=== PATIENT | male | born 1985 | race Caucasian/White ===

== ENCOUNTER 2023-04-05 11:46 | Outpatient (REF) | payer OTHER, SELFPAY ==
[2023-04-05 12:01] VITALS: BP 137/77; PULSE 84; RESP 16; TEMP 36.8; O2SAT 99
[2023-04-05 13:39] VITALS: BP 137/85; PULSE 82; O2SAT 100
== END 2023-04-05 11:47 | disposition home or self-care (01) ==
LOC: HO.MS 11:46
PROVIDERS: Visit Provider Ophthalmology
PROC: (CPT 67700; principal; 2023-04-05 16:10)
DX: H00.12 Chalazion right lower eyelid (principal)
CPT/HCPCS: 67700

== ENCOUNTER 2023-06-25 17:27 | Emergency (ER) | payer OTHER, SELFPAY ==
--- NOTE | 2023-06-25 | ECG_ITS ---
Test Reason : cp Blood Pressure : / mmHG Vent. Rate : 085 BPM Atrial Rate : 085 BPM P-R Int : 140 ms QRS Dur : 096 ms QT Int : 372 ms P-R-T Axes : 056 011 025 degrees QTc Int : 442 ms Normal sinus rhythm Incomplete right bundle branch block Borderline ECG No previous ECGs available Referred By: Generic ED Physician Electronically Signed By:LIU KERN MD
--- NOTE | ~2023-06-25 | XR_ITS ---
EXAMINATION: XR CHEST CLINICAL INFORMATION: Chest pain COMPARISON: None available. TECHNIQUE: 2 views of the chest were obtained. FINDINGS: No significant abnormality is noted involving the heart, lungs, mediastinum, bony thorax or soft tissues. XR/XR chest 2V IMPRESSION: Unremarkable chest examination.
[2023-06-25 17:42] VITALS: BP 138/85; PULSE 87; RESP 20; TEMP 37.1; O2SAT 100; BMI 25.4
--- NOTE | 2023-06-25 17:44 | ED_ITS ---
HPI - General Adult General Chief complaint: Upper Respiratory Symptoms Stated complaint: chest pain,cough sent from Time Seen by Provider: 06/25/23 20:00 Source: patient Mode of arrival: ambulatory Limitations: no limitations History of Present Illness HPI narrative: Patient comes to the emergency room complaining of cough, nasal congestion. Patient states that earlier today he went to urgent Care, he he told the provider that he was experiencing chest burning sensation from coughing so much, patient was asked to come to the emergency room for further evaluation. Patient denies any chest pain or shortness of breath. Patient denies fever chills Related Data Allergies Allergy/AdvReac Type Severity Reaction Status Date / Time No Known Allergies Allergy Unverified 02/08/20 17:39 [No Known Allergies*] Review of Systems 2 Review of Systems: Constitutional : No Weight loss, No Fever, No Chills, No Night Sweats, No Fatigue, No Malaise ENT/Mouth : No Hearing loss, No Ear Pain, complaining of Nasal Congestion, No Sinus Pain, No Hoarseness, No sore throat, No Rhinorrhea, No Swallowing Difficulty Eyes: No Eye Pain, No Swelling, No Redness, No Foreign Body, No Discharge, No Vision Changes Cardiovascular : No Chest Pain, No SOB, No Dyspnea on Exertion, No Orthopnea, No Edema, No Palpitations Respiratory : Complaining of Cough, No Sputum, No Wheezing, No Smoke Exposure, No Dyspnea Gastrointestinal : No Nausea, No Vomiting, No Diarrhea, No Constipation, No abdominal Pain, No Hematochezia, No Melena Genitourinary : no irregular bleeding, No Dysuria, No Urinary Frequency, No Hematuria, No Urinary Incontinence, No Urgency, No Flank Pain, No Urinary Flow Changes, No Hesitancy Musculoskeletal : No joint pain, No Myalgias, No Joint Swelling Skin : No Skin Lesions, No rash Neuro : No Weakness, No Numbness, No Paresthesias, No Loss of Consciousness, No Dizziness, No Headache Psych : No Anxiety/Panic, No Depression, No SI/HI/AH/VH, No Social Issues, Heme/Lymph: No Bruising, No Bleeding,No Lymphadenopathy Endocrine : No Polyuria, No Polydipsia, No Temperature Intolerance PMFSH Social History Social History Advance Directives: No Advance Directives Information Provided: No Physical Exam ED Vital Signs: Vital Signs - 24 hr 06/25/23 17:42 Temperature 98.8 F Pulse Rate 87 Respiratory Rate 20 Blood Pressure 138/85 Pulse Oximetry 100 Oxygen Delivery Method Room Air BMI result Body Mass Index 25.4 Const Other: Appearance: Alert. Oriented X3. No acute distress. Eyes: Pupils equal, round and reactive to light. ENT: Pharynx normal. Neck: Normal inspection. Neck supple. No lymph nodes noted. No crepitus CVS: Normal heart rate and rhythm. Pulses normal. Normal S1 and S2 Respiratory: No respiratory distress. Breath sounds normal. No Wheezing. No rales Abdomen: Soft and nontender. No rigidity. No distention. Skin: Skin warm and dry. Normal skin color. Normal skin turgor. Extremities: No lower extremity edema. No Lacerations. No Rash Neuro: Oriented X 3. No motor deficit. No sensory deficit. Moving all extremities. No slurred speech. CN 2 through 12 grossly intact Psych: calm, cooperative, normal affect Course Course Course Narrative: RME performed by Vianey Martinez PA-C. Patient is a 37 year old assigned male at presenting to the emergency department with chest pain. Detailed physical exam and review of systems are deferred to the sternman. Labs and imaging ordered. Patient placed back in the waiting room pending room availability and results. Medical Decision Making Medical Decision Making [facility] Narrative: My interpretation of labs: Normal hematology chemistry LFTs troponin -my interpretation of chest x-ray: No infiltrates Differential Diagnosis Differential Diagnoses: The differential diagnosis associated with the presentation includes (ACS, pneumonia, musculoskeletal pain, pleurisy) Admission/Observation Consideration of admission/observation: Escalation of care including admission/observation considered (Given patient's transferred from urgent Care, patient's history, admission was considered) Consult Healthcare Provider Management of the patient was discussed with: Hospitalist Lab Data [facility] Lab Attestation statement: I reviewed the patient's lab results. 06/25/23 18:30 06/25/23 18:30 Labs: Lab Results 06/25/23 Range/Units 18:30 WBC 7.9 (4.8-10.8) X10*3/uL RBC 5.75 (4.60-5.80) X10*6/uL Hgb 15.9 (14.0-18.0) g/dl Hct 46.0 (42.0-52.0) % MCV 80.0 (80.0-98.0) fL MCH 27.7 (27.0-33.0) pg MCHC 34.6 (31.0-36.0) g/dl RDW 12.1 (11.0-16.0) % Plt Count 258 (160-400) X10*3/uL MPV 9.1 L (9.4-12.4) fL Immature Gran % (Auto) 0.3 (0.0-0.4) % Neut % (Auto) 56.5 (45-73) % Lymph % (Auto) 26.7 (20-40) % [place] % (Auto) 12.3 H (2-11) % Eos % (Auto) 3.8 (0-4) % Baso % (Auto) 0.4 (0-2) % Lymph # (Auto) 2.1 (1.2-4.9) X10*3/uL [place] # (Auto) 1.0 (0.1-1.2) X10*3/uL Eos # (Auto) 0.3 (0.0-0.4) X10*3/uL Baso # (Auto) 0.0 (0.0-0.2) X10*3/uL Abs Immat Gran (auto) 0.02 (0.00-0.03) X10*3/uL Absolute Neuts (auto) 4.5 (2.0-8.3) x10*3/uL Absolute Nucleated RBC 0.000 (0.0-0.012) X10*3/uL Nucleated RBC % (auto) 0.0 (0.0-0.2) /100WBC PT 11.8 (11.1-13.3) SEC INR 1.0 (0.9-1.1) APTT 33.7 (26.0-36.8) SEC Sodium 138 (135-145) mmol/L Potassium 4.1 (3.3-5.1) mmol/L Chloride 102 (96-108) mmol/L Carbon Dioxide 25 (22-29) mmol/L Anion Gap 15 (12-20) BUN 14 (9-16) mg/dL Creatinine 0.75 (0.5-1.4) mg/dL Estim Creat Clear Calc 127.9 Estimated GFR > 60 Random Glucose 90 (60-115) mg/dL Calcium 9.7 (8.4-10.2) mg/dL Magnesium 2.1 (1.6-2.6) mg/dL Total Bilirubin 0.4 (0.0-1.0) mg/dL AST 19 (5-37) U/L ALT 33 (0-40) U/L Alkaline Phosphatase 48 (39-117) U/L Troponin I High Sens < 2.7 (<3.5-35.0) ng/L Total Protein 8.0 (6.5-8.0) g/dL Albumin 4.8 (3.5-5.0) g/dL Independent Interpretation I performed an independent interpretation of an: Plain X-Ray Radiology Impression Discussion of test interpretation with radiology: I have reviewed the radiologist's reading. Radiologist Impression: FINDINGS: No significant abnormality is noted involving the heart, lungs, mediastinum, bony thorax or soft tissues. XR/XR chest 2V IMPRESSION: Unremarkable chest examination. Critical Care Time Critical Care Time Critical Care Time: Yes Total Critical Care Time: 30 Attestation: I have personally provided critical care time. Time includes review of lab data, radiology results, discussion with consultants, and monitoring for potential decompensation. Intervention performed as documented. Discharge Plan Discharge Clinical Impression: Upper respiratory infection Patient Disposition: Home, Self-Care Instructions: Upper Respiratory Infection (ED) Additional Instructions: Please follow-up with your primary care physician tomorrow. If you have any worsening or new symptoms, please return to the emergency room or call 911
[2023-06-25 18:35] LABS: MANUAL DIFF FLAG NO
[2023-06-25 18:42] LABS: Basophils Percent Auto 0.4 % (0-2); Eosinophils Absolute Auto 0.3 X10*3/uL (0.0-0.4); Eosinophils Percent Auto 3.8 % (0-4); Hemoglobin 15.9 g/dl (14.0-18.0); Imm Gran Abs Auto 0.02 X10*3/uL (0.00-0.03); Imm Gran Pct Auto 0.3 % (0.0-0.4); Lymphocytes Absolute Auto 2.1 X10*3/uL (1.2-4.9); Lymphocytes Percent Auto 26.7 % (20-40); Mean Corpuscular HGB Conc 34.6 g/dl (31.0-36.0); Mean Corpuscular Hemoglobin 27.7 pg (27.0-33.0); Mean Platelet Volume 9.1 fL (9.4-12.4); Monocytes Percent Auto 12.3 % (2-11); Neutrophils Absolute Auto 4.5 x10*3/uL (2.0-8.3); Neutrophils Percent Auto 56.5 % (45-73); Platelet Count 258 X10*3/uL (160-400); Red Blood Count 5.75 X10*6/uL (4.60-5.80); Red Cell Distribution Width 12.1 % (11.0-16.0); White Blood Count 7.9 X10*3/uL (4.8-10.8)
[2023-06-25 18:51] LABS: Prothrombin Time 11.8 SEC (11.1-13.3)
[2023-06-25 18:53] LABS: Partial Thromboplastin Time 33.7 SEC (26.0-36.8)
[2023-06-25 18:54] LABS: Alanine Aminotransferase 33 U/L (0-40); Albumin Level 4.8 g/dL (3.5-5.0); Alkaline Phosphatase 48 U/L (39-117); Anion Gap 15 (12-20); Aspartate Amino Transferase 19 U/L (5-37); Bilirubin Total 0.4 mg/dL (0.0-1.0); Blood Urea Nitrogen 14 mg/dL (9-16); Calcium 9.7 mg/dL (8.4-10.2); Carbon Dioxide 25 mmol/L (22-29); Chloride 102 mmol/L (96-108); Creatinine Clr Calc Pharmacy 127.9; Estimated Glomerular Filt Rate > 60; Glucose Random 90 mg/dL (60-115); Magnesium 2.1 mg/dL (1.6-2.6); Potassium 4.1 mmol/L (3.3-5.1); Sodium 138 mmol/L (135-145)
[2023-06-25 19:02] LABS: Troponin-I High Sensitivity < 2.7 ng/L (<3.5-35.0)
== END 2023-06-25 20:20 | disposition home or self-care (01) ==
PROVIDERS: Physician Assistant Medical; Emergency Provider Emergency Medicine; PCP Physician Assistant Medical
DX: J06.9 Acute upper respiratory infection, unspecified (principal); R07.89 Other chest pain; R05.9 Cough, unspecified; Z79.899 Other long term (current) drug therapy
CPT/HCPCS: 36415; 71046; 80053; 83735; 84484; 85025; 85610; 85730; 93005; 99283

== ENCOUNTER → 2023-06-25 17:33 | Outpatient (BNV) | payer OTHER, SELFPAY | PROVIDERS: Emergency Provider Emergency Medicine; PCP Physician Assistant Medical; Visit Provider Internal Medicine Cardiovascular Disease | DX: R07.9 Chest pain, unspecified (principal) | CPT/HCPCS: 93010 ==

== ENCOUNTER 2025-02-14 07:38 | Outpatient (REF) | payer OTHER, SELFPAY ==
--- OUTSIDE RECORDS SUMMARY | 2025-02-12 09:30 | XMS_ITS | Encounter Summary ---
Author Organization [facility] Address [address] [place] [address] Care Team Providers Care Automatic Chief Name Role Phone Marj Akhtar MD Primary Care Prov ider Reason for Referral * Consultation (Routine) - Pending Review Specialty Diagnoses / Procedures Referred By Beto tyler Referred To Contact Neurology Diagnoses Dizziness, nonspecific Other fatigue Brain fog Jamel Whitfield PA [address], [place] Phone: tel: fax: Referral ID Status Reason Start Date Expiration Date Visits Requested Visits Authorized [id number] Pending Review Specialty Services Required 02/12/2025 02/12/2026 1 1 Reason for Visit * Reason Comments med review Encounter Details Date Type Department Care Team ([facility] Contact Info) Description 02/12/2025 9:30 AM EDT Office Visit Adult Medicine - [place] [address] [place] [address] Jamel Whitfield PA [address], [place] Dizziness, nonspecific (Primary Dx); Brain fog; Other fatigue; 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; Dyslipidemia; History of Lyme disease; Erectile dysfunction, unspecified erectile dysfunction type; Primary hypertension Social History Tobacco Use Types Packs/Day Years Used Date Smoking Tobacco: Never Smokeless Tobacco: Never Alcohol Use Standard Drinks/Week Comments Yes 0 (1 standard drink = 0.6 oz pur e alcohol) Housing Instability Answer Date Recorde d Are you worried that in the next 2 months you may not have stable housing? No 08/10/2024 Food Access & Nutrition Answer Date Rec orded Do you have access to a vari ety of food including fruits and vegetables? Yes 08/10/2024 Access to Healthcare Answer Date Record ed Within the last 3 months, ho w many times did you visit the emergency department for your medical care? 0 08/10/2024 Health Literacy Answer Date Recorded How often do you need to hav e someone help you when you read instructions, pamphlets, or other written material from your doctor or pharmacy? Never 08/10/2024 Caregiver: How often do you need to have someone help you when you read instructions, pamphlets, or other written material from your doctor or pharmacy? Not on file 08/10/2024 Financial Risk Answer Date Recorded How hard is it for you to pa y for the very basics like food, housing, medical care, and air conditioning / heating? Not very hard 08/10/2024 Transportation Answer Date Recorded Has the lack of transportati on kept you from meetings, work, or from getting things needed for daily living? No Has the lack of transportati on kept you from medical appointments or from getting medications? No 08/10/2024 Social Isolation Answer Date Recorded How often do you feel lonely or isolated from th ose around you? Never 08/10/2024 Food Risk Answer Date Recorded Within the past 12 months we worried whether our food would run out before we got money to buy more. Never true 08/10/2024 Within the past 12 months th e food we bought just didn't last and we didn't have money to get more. Never true 08/10/2024 Dependent Care Answer Date Recorded Do you need help finding or paying for care for your loved ones. For example, child care teacher or elderly care for an older adult? No 08/10/2024 Education Answer Date Recorded Do you think completing more education or training, like finishing a GED, going to college, or learning a trade, would be helpful for you? No 08/10/2024 Employment and Income Answer Date Recor ded During the last four weeks, have you been actively looking for work? No 08/10/2024 Living Situation Answer Date Recorded What is your living situation? 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 Not on file Not on file documented as of this encounter Last Filed Vital Signs Vital Sign Reading Time Taken Comments Blood Pressure 132/79 02/12/2025 9:36 AM EDT Pulse 77 02/12/2025 9:36 AM EDT Temperature 36.8 C (98.3 F) 02/12/2025 9:36 AM EDT Respiratory Rate - - Oxygen Saturation - - Inhaled Oxygen Concentration - - Weight 81.6 kg (180 lb) 02/12/2025 9:36 AM EDT Height 170.2 cm (5' 7 ) 02/12/2025 9:36 AM EDT Body Mass Index 28.19 02/12/2025 9:36 AM EDT documented in this encounter Progress Notes * BRISEIDA Larsen - 02/12/2025 9:30 AM EDT CHIEF COMPLAINT: med review IDENTIFIER: Kee Cedillo is a 39 y.o. old male. HPI: Patient here for med review. Contracted Lyme disease over the summer. Was treated by outside urgent care with 10 days of doxycycline. He is wondering about retesting if necessary. Still has chronic fatigue and occasional dizziness with brain fog. States they keep telling me itsallergies, allergies, allergies but still feels fatigued. 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 Gets plenty of sleep. Feels he sleeps soundly. No narcotics or excessive alcohol use. Feels he is eating a healthy diet and drinking plenty of water. In April had normal morning testosterone level. Has had normal vitamin D and TSH levels. Taking loratadine daily. Has been previously diagnosed with post-COVID fatigue ROS: GENERAL: Negative for malaise, significant weight loss and fever NECK: Negative for lumps, goiter, pain, and significant neck swelling RESPIRATORY: No cough, wheezing or shortness of breath CARDIOVASCULAR: Negative for chest pain, leg swelling and palpitations GI: Negative for abdominal discomfort, changes in bowel habits, blood in stool or black stools ENDOCRINE: Negative for cold or heat intolerance, polyuria, polydipsia and goiter NEURO: No persistent headache, fainting, seizures, strokes, TIAs, weakness, numbness or tingling PAST MEDICAL HISTORY: Patient Active Problem List Diagnosis Date Noted Hypertension 05/08/2024 Gastroesophageal reflux disease 05/08/2024 Dyslipidemia 09/18/2022 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 08/03/2022 Precordial pain 05/28/2021 Erectile dysfunction 12/02/2020 Elevated LDL cholesterol level 07/19/2020 Chronic bilateral low back pain with right-sided sciatica 02/20/2020 Myositis 03/05/2009 SOCIAL HISTORY: Social History Tobacco Use Smoking status: Never Smokeless tobacco: Never Substance Use Topics Alcohol use: Yes FAMILY HISTORY: Family Status Relation Name Status Mother Alive Father Alive, age 63y Brother Alive Brother Alive MGM MGF PGM Alive PGF at age 93 Uncle Uncle No partnership data on file Family History Problem Relation Name Age of Onset Thyroid disease Mother Hypertension Father Heart attack Father 38 a few stents-triple bypass Prostate cancer Father 60 No Known Problems Brother No Known Problems Brother No Known Problems Maternal Grandmother Other (Other: cancer unknown) Maternal Grandfather Diabetes Paternal Grandmother Heart attack Paternal Grandfather 41 Colon cancer Paternal Grandfather Heart attack Uncle Heart attack Uncle and heart transplant ACTIVE MEDICATIONS: Outpatient Medications Marked as Taking for the 02/12/25 encounter (Office Visit) with BRISEIDA Larsen Medication Sig Dispense Refill albuterol HFA (PROAIR HFA ; PROVENTIL HFA ; VENTOLIN HFA) 90 mcg/actuation inhaler Inhale 2 Puffs into the lungs every 4 hours as needed for Cough, Wheezing or Shortness of Breath. azelastine (ASTELIN) 137 mcg (0.1 %) nasal spray USE 2 SPRAYS NASALLY TWICE A DAY DIRECTED EPINEPHrine (EpiPen 2-Ranjith) 0.3 mg/0.3 mL injection INJECT 1 PEN INJECTOR SINGLE DOSE NEEDED loratadine (CLARITIN) 10 mg tablet Take 1 tablet (10 mg total) by mouth 1 (one) time each day. losartan (COZAAR) 50 mg tablet TAKE 1 TABLET BY MOUTH EVERY DAY 90 tablet 1 omeprazole (PriLOSEC) [address] capsule Take 1 capsule (40 mg total) by mouth 2 (two) times a day. tadalafiL (CIALIS) 5 mg tablet Take 1 Tablet by mouth. ALLERGIES: Nut - unspecified and Peanut PHYSICAL EXAM: Blood pressure 132/79, pulse 77, temperature 36.8 ??C (98.3 ??F), temperature source Temporal, height 1.702 m (67 ), weight 81.6 kg (180 lb). Body mass index is 28.19 kg/m??. Plan is deferred until next visit APPEARANCE: Alert and in no acute distress EYES: PERRLA, conjunctiva and sclera normal MOUTH/THROAT: no erythema, lesions, or exudates NECK: Neck supple, no adenopathy, thyroid symmetric and of normal size HEART: RRR with normal S1 and S2, no murmurs, no gallops, no JVD appreciated LUNG: clear to auscultation bilaterally EXTREMITIES: Extremities warm and well perfused without clubbing, cyanosis, or edema NEURO: Awake, alert and oriented x 3, Cranial nerves II-XII grossly intact, and reflexes symmetrical LABS: Appointment on 12/01/2024 Component Date Value Ref Range Status Lyme IgG Antibody 12/01/2024 Positive (A) Negative Final Lyme IgM Antibody 12/01/2024 Positive (A) Negative Final Lyme Ab 12/01/2024 Positive (A) Negative Final Results are consistent with B. burgdorferi (Lyme disease) in the recent or remote past. Antibodies may remain detectable for months to years following resolution of infection. Results SHOULD NOT be used to monitor or establish adequate response to therapy. Response to therapy is confirmed through resolution of clinical symptoms; additional laboratory testing SHOULD NOT be performed. If both tests are equivocal consider repeat testing in 7-14 days if clinically warranted Sed Rate 12/01/2024 12 0 - 15 mm/hr Final WBC 12/01/2024 6.2 4.8 - 10.8 K/mcL Final RBC 12/01/2024 5.10 4.50 - 5.50 M/mcL Final Hemoglobin 12/01/2024 14.2 13.5 - 17.5 g/dL Final Hematocrit 12/01/2024 42.4 42.0 - 54.0 % Final MCV 12/01/2024 82.8 79.0 - 98.0 FL Final MCH 12/01/2024 27.7 27.0 - 32.0 pcg Final MCHC 12/01/2024 33.5 32.0 - 37.0 g/dL Final RDW 12/01/2024 11.8 11.0 - 15.0 % Final Platelets 12/01/2024 300 130 - 400 K/mcL Final MPV 12/01/2024 9.2 7.0 - 11.0 FL Final NRBC 12/01/2024 0.0 <1.0 % Final NRBC Absolute 12/01/2024 0.00 <0.10 K/mcL Final Neutrophils Relative 12/01/2024 54.6 % Final Lymphocytes Relative 12/01/2024 34.5 % Final Monocytes Relative 12/01/2024 7.0 % Final Eosinophils Relative 12/01/2024 2.6 % Final Basophils Relative 12/01/2024 0.5 % Final Immature Granulocytes Relative 12/01/2024 0.8 % Final Neutrophils Absolute 12/01/2024 3.38 1.50 - 7.00 K/mcL Final Lymphocytes Absolute 12/01/2024 2.13 1.00 - 5.00 K/mcL Final Monocytes Absolute 12/01/2024 0.43 0.20 - 1.00 K/mcL Final Eosinophils Absolute 12/01/2024 0.16 0.00 - 0.50 K/mcL Final Basophils Absolute 12/01/2024 0.03 0.00 - 0.20 K/mcL Final Immature Granulocytes Absolute 12/01/2024 0.05 (H) 0.00 - 0.03 K/mcL Final Appointment on 08/24/2024 Component Date Value Ref Range Status PSA 08/24/2024 0.60 0.00 - 4.00 ng/mL Final PSA, Complexed 08/24/2024 0.39 0.00 - 3.00 ng/mL Final PSA, Free 08/24/2024 0.2 ng/mL Final PSA, Free Pct 08/24/2024 33.3 >25.0 % Final Appointment on 08/10/2024 Component Date Value Ref Range Status Hemoglobin A1C 08/10/2024 5.4 <6.5 % Final Mean Bld Glu Estim. 08/10/2024 108 mg/dL Final Hepatitis C Antibody 08/10/2024 Negative Negative Final Cholesterol 08/10/2024 240 (H) 0 - 200 mg/dL Final Triglycerides 08/10/2024 148 0 - 150 mg/dL Final HDL 08/10/2024 59 >=40 mg/dL Final LDL Calculated 08/10/2024 151 (H) 0 - 100 mg/dL Final VLDL Cholesterol Gabo 08/10/2024 29.6 mg/dL Final Non HDL Chol. (LDL+VLDL) 08/10/2024 181 (H) <145 mg/dL Final Chol/HDL Ratio 08/10/2024 4.1 0.0 - 4.4 Final Appointment on 05/10/2024 Component Date Value Ref Range Status Testosterone 05/10/2024 575 229 - 902 ng/dL Final Testosterone, Free 05/10/2024 12.1 4.6 - 22.4 ng/dL Final Testosterone, Bioavailable 05/10/2024 296 110 - 575 ng/dL Final Sex Hormone Binding 05/10/2024 32.5 See Comment nmol/L Final FEMALES: pre-menopausal 10.8 - >180 post-menopausal 23.2 - 159.1 MALES: 21-49 years 14.6 - 94.6 50-89 years 21.6 - 113.1 CHILDREN: No established reference range Over the counter supplements containing high doses of biotin may interfere with this assay. If interference is suspected, patients should be retested after refraining from biotin supplements for 72 hours. Albumin 05/10/2024 4.5 3.2 - 5.0 g/dL Final Vit D, 25-Hydroxy 05/10/2024 33.0 30.0 - 80.0 ng/mL Final TSH 05/10/2024 1.48 0.40 - 4.00 mcIU/mL Final Cholesterol 05/10/2024 211 (H) 0 - 200 mg/dL Final Triglycerides 05/10/2024 170 (H) 0 - 150 mg/dL Final HDL 05/10/2024 52 >=40 mg/dL Final LDL Calculated 05/10/2024 125 (H) 0 - 100 mg/dL Final VLDL Cholesterol Gabo 05/10/2024 34 mg/dL Final Non HDL Chol. (LDL+VLDL) 05/10/2024 159 (H) <145 mg/dL Final Chol/HDL Ratio 05/10/2024 4.1 0.0 - 4.4 Final Sodium 05/10/2024 139 133 - 145 mmol/L Final Potassium 05/10/2024 4.4 3.5 - 5.5 mmol/L Final Chloride 05/10/2024 105 96 - 110 mmol/L Final CO2 05/10/2024 29 21 - 32 mmol/L Final Anion Gap 05/10/2024 5 3 - 11 Final Glucose 05/10/2024 108 (H) 70 - 100 mg/dL Final BUN 05/10/2024 17 5 - 25 mg/dL Final Creatinine 05/10/2024 0.86 0.70 - 1.30 mg/dL Final eGFR 05/10/2024 112 >=60 mL/min/1.73m2 Final Calculation based on the Chronic Kidney Disease Epidemiology Collaboration (CKD- EPI) equation refitwithout adjustment for race. BUN/Creatinine Ratio 05/10/2024 19.8 Final Calcium 05/10/2024 9.3 8.5 - 10.5 mg/dL Final AST (SGOT) 05/10/2024 19 10 - 42 unit/L Final ALT (SGPT) 05/10/2024 41 10 - 60 unit/L Final Alkaline Phosphatase 05/10/2024 43 42 - 121 unit/L Final Total Protein 05/10/2024 7.4 6.0 - 8.0 g/dL Final Albumin 05/10/2024 4.5 3.2 - 5.0 g/dL Final Total Bilirubin 05/10/2024 0.6 0.0 - 1.4 mg/dL Final WBC 05/10/2024 6.0 4.8 - 10.8 K/mcL Final RBC 05/10/2024 5.40 4.50 - 5.50 M/mcL Final Hemoglobin 05/10/2024 14.8 13.5 - 17.5 g/dL Final Hematocrit 05/10/2024 44.7 42.0 - 54.0 % Final MCV 05/10/2024 82.8 79.0 - 98.0 FL Final MCH 05/10/2024 27.4 27.0 - 32.0 pcg Final MCHC 05/10/2024 33.1 32.0 - 37.0 g/dL Final RDW 05/10/2024 12.1 11.0 - 15.0 % Final Platelets 05/10/2024 299 130 - 400 K/mcL Final MPV 05/10/2024 9.8 7.0 - 11.0 FL Final NRBC 05/10/2024 0.0 <1.0 % Final NRBC Absolute 05/10/2024 0.00 <0.10 K/mcL Final Neutrophils Relative 05/10/2024 51.6 % Final Lymphocytes Relative 05/10/2024 35.6 % Final Monocytes Relative 05/10/2024 9.1 % Final Eosinophils Relative 05/10/2024 2.9 % Final Basophils Relative 05/10/2024 0.5 % Final Immature Granulocytes Relative 05/10/2024 0.3 % Final Neutrophils Absolute 05/10/2024 3.07 1.50 - 7.00 K/mcL Final Lymphocytes Absolute 05/10/2024 2.12 1.00 - 5.00 K/mcL Final Monocytes Absolute 05/10/2024 0.54 0.20 - 1.00 K/mcL Final Eosinophils Absolute 05/10/2024 0.17 0.00 - 0.50 K/mcL Final Basophils Absolute 05/10/2024 0.03 0.00 - 0.20 K/mcL Final Immature Granulocytes Absolute 05/10/2024 0.02 0.00 - 0.03 K/mcL Final Abstract on 04/12/2024 Component Date Value Ref Range Status HM Annual BMP Blood Test 07/26/2023 abstracted Final LDL/HDL Ratio 07/26/2023 3 0 - 4 Final Triglycerides 07/26/2023 99 0 - 150 mg/dL Final Cholesterol 07/26/2023 201 (A) 0 - 200 mg/dL Final HDL 07/26/2023 60 >=40 mg/dL Final LDL Cholesterol 07/26/2023 122 (A) 0 - 100 mg/dL Final IMPRESSION: 1. Dizziness, nonspecific 2. Brain fog 3. Other fatigue 4. 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 5. Dyslipidemia 6. History of Lyme disease 7. Erectile dysfunction, unspecified erectile dysfunction type 8. Primary hypertension PLAN: Dizziness/brain fog/history of COVID. Unclear etiology. Patient wants to get a second opinion from neurology and order has been placed. Has had negative MRI of the brain and a lot of negative testingso far. Checking B12 levels and another morning testosterone Might need to start statin at some point in the future due to his cholesterol levels. Checking lipid levels again. ED has been okay with the Cialis. Blood pressure reasonably well-controlled on the losartan 50 mg. Discussed signs and symptoms warranting reevaluation. Risks, benefits, and side-effects of the medication were discussed and the patient expressed verbalunderstanding and consents to the plan. Followup in 6 months This note was created using dictation software and may contain syntax and grammar errors. Orders Placed This Encounter Procedures Testosterone free, bioavailable and total Vitamin B12 Lipid panel with reflex to direct LDL Ambulatory referral to Neurology ADDITIONAL ORDERS: AMB REFERRAL TO NEUROLOGY BRISEIDA Larsen on 02/12/2025 at 12:33 PM EDT documented in this encounter Plan of Treatment Upcoming Encounters Date Type Department Care Team (Late st Contact Info) Description 08/13/2025 8:30 AM EDT [place] [facility] [place] [address] [place] [address] Jamel Whitfield PA [address] [place] [id number] Scheduled Orders Name Type Priority Associated Diagnoses Orde r Schedule Testosterone free, bioavailable and total Lab Routine Other fatigue 1 Occurrences starting 02/12/2025 until 02/12/2026 Vitamin B12 Lab Routine Other fatigue 1 Occurrences starting 02/12/2025 until 02/12/2026 Lipid panel with reflex to direct LDL Lab Routine Dyslipidemia 1 Occurrences starting 02/12/2025 until 02/12/2026 Scheduled Referrals Name Type Priority Associated Diagnoses Order Schedule Ambulatory referral to Neurology Outpatient Referral Routine Dizziness, nonspecific Other fatigue Brain fog 1 Occurrences starting 02/12/2025 until 02/12/2026 documented as of this encounter Visit Diagnoses Diagnosis Dizziness, nonspecific- Primary Dizziness and giddiness Brain fog Other fatigue 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 Dyslipidemia Other and unspecified hyperlipidemia History of Lyme disease Erectile dysfunction, unspecified erectile dysfunction type Primary hypertension Unspecified essential hypertension documented in this encounter Additional Health Concerns Assessment Noted Time PHQ-9 Depression Total Score: 0 08/11/19 25 8:32 AM EDT documented as of this encounter Care Teams Automatic Chief Relationship Specialty Start Date End Date Marj Akhtar MD [address] [place] [id number] PCP - General Internal Medicine 07/19/20 documented as of this encounter
--- NOTE | ~2025-02-14 | XR_ITS ---
EXAMINATION: XR SHOULDER, LEFT CLINICAL INFORMATION: M25.512 - Pain in left shoulder COMPARISON: None available. TECHNIQUE: Two views of the left shoulder. FINDINGS: The bones and soft tissues are normal. No fracture. Glenohumeral and acromioclavicular alignment is anatomic with normal joint space. No abnormal soft tissue calcifications. XR/XR shoulder LT min 2V IMPRESSION: Unremarkable left shoulder x-ray. Electronically signed by: Devante Pete MD 02/14/2025 02:31 PM EDT
--- OUTSIDE RECORDS SUMMARY | 2025-02-14 07:44 | XMS_ITS ---
Author Name [facility] Organization Unknown History of Medication Use Medication Directions Dispensed Refills Start Date End Date Stat us losartan (COZAAR) 50 mg tablet TAKE 1 TABLET BY MOUTH EVERY DAY 08/18/2024 active azelastine (ASTELIN) 137 mcg (0.1 %) nasal spray USE 2 SPRAYS NASALLY TWICE A DAY DIRECTED 01/19/2023 active omeprazole (PriLOSEC) [address] capsule Take 1 capsule (40 mg total) by mouth 2 (two) times a day. 05/04/2022 active tadalafiL (CIALIS) 5 mg tablet Take 1 Tablet by mouth. 05/04/2022 active EPINEPHrine (EpiPen 2-Ranjith) 0.3 mg/0.3 mL injection INJECT 1 PEN INJECTOR SINGLE DOSE NEEDED 11/04/2021 active albuterol HFA (PROAIR HFA ; PROVENTIL HFA ; VENTOLIN HFA) 90 mcg/actuation inhaler Inhale 2 Puffs into the lungs every 4 hours as needed for Cough, Wheezing or Shortness of Breath. 07/24/2021 active loratadine (CLARITIN) 10 mg tablet Take 1 tablet (10 mg total) by mouth 1 (one) time each day. active Allergies Allergen Reaction Severity Comment Documented Date Source Statu s NUT - UNSPECIFIED Tree nuts 07/23/2023 [facility] N active PEANUT 09/18/2022 [facility] active Problems Problem Status Onset Date Problem Type Date of Resoluti on Source Dyslipidemia active 2022-09-18 ProblemAct [facility] SFRAN Precordial pain active 2021-05-[address] [facility] Myositis active 2009-03-05 ProblemAct [facility] AN Elevated LDL cholesterol level active 2020-07-19 ProblemAct [facility] Gastroesophageal reflux disease active 2024-05-08 ProblemAct [facility] Hypertension active 2024-05-08 ProblemAct [facility]SANJA[facility] SFRTONNY Erectile dysfunction active 2020-12-02 ProblemAct [facility]_SANJANASMARIN Chronic bilateral low back pain with right-sided sciatica active 2020-02-20 ProblemAct [facility]_SANJANASClaudine RAN 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 active 2022-08-03 ProblemAct [facility] Immunizations Vaccine Date Source Lot Number Status Rabies, Unspecified 01/05/2017 [facility] compl eted Rabies, Unspecified 12/28/2016 [facility] compl eted Rabies, Unspecified 12/25/2016 [facility] compl eted Rabies, Unspecified 12/22/2016 [facility] compl eted Care Team Organization Name Specialty Phone Email Start Date End Da te [facility] Primary Care 03/31/2022 01/10/2024
--- OUTSIDE RECORDS SUMMARY | 2025-02-14 07:44 | XMS_ITS | Clinical Summary ---
Author Organization [facility] Address [address] [place] [address] Phone Care Team Providers Care Director Independent Name Role Phone Marj Akhtar MD Primary Care Prov ider Allergies Active Allergy Reactions Criticality Noted Date Comments Nut - Unspecified 07/23/2023 Tree nuts Peanut 09/18/2022 Medications azelastine (ASTELIN) 137 mcg (0.1 %) nasal spray USE 2 SPRAYS NASALLY TWICE A DAY DIRECTED 3 Active loratadine (CLARITIN) 10 mg tablet Take 1 tablet (10 mg total) by mouth 1 (one) time each day. Active tadalafiL (CIALIS) 5 mg tablet Take 1 Tablet by mouth. 2 Active omeprazole (PriLOSEC) [address] capsule Take 1 capsule (40 mg total) by mouth 2 (two) times a day. 2 Active EPINEPHrine (EpiPen 2-Ranjith) 0.3 mg/0.3 mL injection INJECT 1 PEN INJECTOR SINGLE DOSE NEEDED 2 Active albuterol HFA (PROAIR HFA ; PROVENTIL HFA ; VENTOLIN HFA) 90 mcg/actuation inhaler Inhale 2 Puffs into the lungs every 4 hours as needed for Cough, Wheezing or Shortness of Breath. 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 s 08/03/2022 Precordial pain 05/28/2021 Overview (04/12/2024): - I met him in May 2021 when he started having atypical chest pains after elsy COVID-19 in April 2021 - He actually went to the ER at [facility] in early May 2021 where thankfully he ruled out with serial cardiac enzymes- at the time, I mainly reassured him that this was likely noncardiac but I did obtain some inflammatory labs and a D-dimer-all of which were normal - He also underwent GI work-had an EGD in April 2022 which was unremarkable - For his more recent symptoms which were slightly different from the previous symptoms he had an exercise stress echocardiogram in June 2022-he exercised for 8 minutes and 53 seconds to 91% of max predicted heart rate with normal resting images, normal resting regional wall motion with ejection fraction of 60 to 65% and normal augmentation of all segments to exercise without regional wall motion abnormalities Last Assessment & Plan: Noncardiac, very reassuring recent exercise stress echocardiogram, reassurance provided; I did discuss the importance of maintaining a very healthy, Mediterranean style diet which I suspect will improve his triglycerides which are only minimally elevated, I also recommended trying fish oil supplements or just increasing his diet of fish- his biggest concern is his risk given his family history; I did consider a coronary calcium score however at this age, plaques are generally noncalcified and therefore this test is not very useful; ideally, I would send him for a CT angiography however with the current insurance climate, this is never covered and quite an expensive [id number] cost-overall, I do not feel his risk is particularly high and therefore we will just continue forward with standard risk reduction interventions including healthy diet, regular aerobic exercise, and monitoring of symptoms Erectile dysfunction 12/02/2020 Elevated LDL cholesterol level 07/19/2020 Chronic bilateral low back pain with right-sided sciatica 02/20/2020 Myositis 03/05/2009 Overview (04/12/2024): [facility] Emergency Room Encounters Date Type Department Care Team Description 02/12/2025 9:30 AM EDT Office Visit [address] [phone] Jamel Whitfield PA Dizziness, nonspecific (Primary Dx); Brain fog; Other fatigue; 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; Dyslipidemia; History of Lyme disease; Erectile dysfunction, unspecified erectile dysfunction type; Primary hypertension 12/25/2024 Telephone Infectious Disease - [place] [address] [place] [address] Jorden Little LPN 12/15/[address] [phone] Marj Akhtar MD 12/04/[address] [phone] Marj Akhtar MD 11/30/2024 7:30 AM EDT Office Visit [address] [phone] Garett Judd PA Other fatigue (Primary Dx); Arthralgia, unspecified joint; Myalgia 11/27/[address] [phone] Marj Akhtar MD from Last 3 Months Immunizations Name Administration Dates Next Due Human Rabies, Human Diploid Cell Culture, (Imovax) 01/05/2017,12/28/2016,12/25/2016,2016 Rabies, Unspecified 01/05/2017, 7,12/25/2016,2016 Surgical History Surgery Date Site/Laterality Comments SHOULDER SURGERY 2017 Right PROCEDURE: HISTORICAL SHOULDER SURGERY; COMMENT: Rotator Cuff: [facility] APPENDECTOMY PROCEDURE: HISTORICAL APPENDECTOMY HERNIA REPAIR 05/14/2020 PROCEDURE: HISTORICAL HERNIA REPAIR/UMB; COMMENT: [place] BACK SURGERY 03/20/2021 PROCEDURE: HISTORICAL BACK SURGERY; COMMENT: Jose Tay. Lumbar Microdiscectomy Medical History Medical History Date Comments History of umbilical hernia 05/14/2020 DX:H istory of umbilical hernia; COMMENT: Dr. Wayne HTN (hypertension) DX:HTN (hyper tension) Family History Medical History Relation Name Comments No Known Problems Brother 1 No Known Problems Brother 2 Heart attack Father a few stents-tr iple bypass Hypertension Father Prostate cancer Father Other: cancer unknown Maternal Grandfather No Known Problems Maternal Grandmother Thyroid disease Mother Colon cancer Paternal Grandfather Heart attack Paternal Grandfather Diabetes Paternal Grandmother Heart attack Uncle 1 Heart attack Uncle 2 and heart trans plant Relation Name Status Comments Brother 1 Alive Brother 2 Alive Father Alive Maternal Grandfather Maternal Grandmother Mother Alive Paternal Grandfather (Age 93) Paternal Grandmother Alive Uncle 1 Uncle 2 Social History Tobacco Use Types Packs/Day Years Used Date Smoking Tobacco: Never Smokeless Tobacco: Never Tobacco Cessation:Counseling Given: Not Answered Alcohol Use Standard Drinks/Week Comments Yes 0 [...] care for your loved ones. For example, director child or elderly care for an older adult? 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 Not on file Not on file Not on file Obstetrics History Last Filed Vital Signs Vital Sign Reading [...] Mass Index 28.19 02/12/2025 9:36 AM EDT Plan of Treatment Upcoming Encounters Date Type Department Care Team (Late st Contact Info) Description 08/13/2025 8:30 AM EDT Office Visit Adult Medicine [address] [place] [phone] Jamel Whitfield PA [address] [place] [address] Health Maintenance Due Date Last Done Comments Hypertension/CHF/CAD Annual BMP Blood Test 05/10/2025 05/10/2024, 07/26/2023 Social Influencers of Health Screening 08/10/2025 08/10/2024 Cholesterol Screening (Lipid Panel) 08/10/2029 08/10/2024, 05/10/2024, 07/26/2023 RSV Immunization Adult Patients (1 - 1-dose 75+ series) 11/28/2058 Depression Screening Completed 08/10/2024 Hepatitis C Screening Completed 08/10/2024 COVID-19 Vaccine Discontinued DTaP,Tdap,and Td Vaccines Discontinued HIB Vaccines Aged Out No longer eligi ble based on patient's age to complete this topic HIV Screening Discontinued HPV Vaccines Aged Out No longer eligi ble based on patient's age to complete this topic Hepatitis A Vaccines Aged Out No long er eligible based on patient's age to complete this topic Hepatitis B Vaccines Discontinued IPV Vaccines Aged Out No longer eligi ble based on patient's age to complete this topic Influenza Vaccine Discontinued MMR Vaccines Aged Out No longer eligi ble based on patient's age to complete this topic Meningococcal ACWY Vaccine Aged Out N o longer eligible based on patient's age to complete this topic Meningococcal B Vaccine Aged Out No l onger eligible based on patient's age to complete this topic Pneumococcal Vaccine: Pediatrics (0 to 5 Years) and At-Risk Patients (6 to 49 Years) Aged Out No longer eligible based on patient's age to complete this topic RSV Immunization Patients Under 20 months Aged Out No longer eligible based on patient's age to complete this topic Varicella Vaccines Aged Out No longer eligible based on patient's age to complete this topic Procedures Procedure Name Priority Date/Time Associated Diagnosis Comments CBC WITH AUTO DIFFERENTIAL Routine 12/01/2024 10:24 AM EDT Other fatigue Arthralgia, unspecified joint Myalgia SEDIMENTATION RATE Routine 12/01/2024 10 :24 AM EDT Other fatigue Arthralgia, unspecified joint Myalgia CBC AND DIFFERENTIAL Routine 12/01/2024 10:24 AM EDT Other fatigue Arthralgia, unspecified joint Myalgia BORRELIA BURGDORFERI ANTIBODY Routine 12/01/2024 10:24 AM EDT Other fatigue Arthralgia, unspecified joint Myalgia HEPATITIS C ANTIBODY Routine 08/10/2024 9:24 AM EDT Need for hepatitis C screening test LIPID PANEL WITH REFLEX TO DIRECT LDL Routine 08/10/2024 9:24 AM EDT Dyslipidemia COMPREHENSIVE METABOLIC PANEL Routine 05/10/2024 8:44 AM EST Other fatigue from Last 3 Months or Most Recently Relevant to Health Maintenance Results * (ABNORMAL) CBC auto differential (12/01/2024 10:24 AM EDT) WBC 6.2 4.8 - 10.8 K/mcL LAB HEMETOLOGY METHOD 12/01/2024 12:03 PM EDT [facility] RBC 5.10 4.50 - 5.50 M/mcL LAB HEMETOLOGY METHOD 12/01/2024 12:03 PM EDT [facility] Hemoglobin 14.2 13.5 - 17.5 g/dL LAB [facility] Hematocrit 42.4 42.0 - 54.0 % LAB HEMETOLOGY METHOD 12/01/2024 12:03 PM EDT [facility] MCV 82.8 79.0 - 98.0 FL LAB H[facility]ETOLOGY METHOD [facility] MCH 27.7 27.0 - 32.0 pcg LAB HEMETOLOGY METHOD 12/01[facility]2024 [facility] MCHC 33.5 32.0 - 37.0 g/dL LAB HEMETOLOGY METHOD 12/01/2024 12:03 PM [facility] RDW 11.8 11.0 - 15.0 % LAB HEMETOLOGY METHOD 12/01/2024 12:03 PM [facility] Platelets 300 130 - 400 K/mcL LAB HEMETOLOGY METHOD 12/01/2024 12:03 PM [facility] MPV 9.2 7.0 - 11.0 FL LAB HEMETOLOGY METHOD 12/01/2024 12:03 PM [facility] NRBC 0.0 <1.0 % LAB HEMETOLOGY METHOD 12/01/2024 12:03 PM [facility] NRBC Absolute 0.00 <0.10 K/mcL LAB HEMETOLOGY METHOD 12/01/2024 12:03 PM [facility] Neutrophils Relative 54.6 % LAB HEMETOLOGY METHOD 12/01/2024 12:03 PM [facility] Lymphocytes Relative 34.5 % LAB HEMETOLOGY METHOD 12/01/2024 12:03 PM [facility] Monocytes Relative 7.0 % LAB HEMETOLOGY METHOD 12/01/2024 12:03 PM [facility] Eosinophils Relative 2.6 % LAB HEMETOLOGY METHOD 12/01/2024 12:03 PM [facility] Basophils Relative 0.5 % LAB HEMETOLOGY METHOD 12/01/2024 12:03 PM [facility] Immature Granulocytes Relative 0.8 % LAB HEMETOLOGY METHOD 12/01/2024 12:03 PM [facility] Neutrophils Absolute 3.38 1.50 - 7.00 K/mcL LAB HEMETOLOGY METHOD 12/01/2024 12:03 PM [facility] Lymphocytes Absolute 2.13 1.00 - 5.00 K/mcL LAB HEMETOLOGY METHOD 12/01/2024 12:03 PM EDT [facility] Monocytes Absolute 0.43 0.20 - 1.00 K/mcL LAB HEMETOLOGY METHOD 12/01/2024 12:03 PM EDT [facility] Eosinophils Absolute 0.16 0.00 - 0.50 K/mcL LAB HEMETOLOGY METHOD 12/01/2024 12:03 PM EDT [facility] Basophils Absolute 0.03 0.00 - 0.20 K/mcL LAB HEMETOLOGY METHOD 12/01/2024 12:03 PM EDT [facility] Immature Granulocytes Absolute 0.05(H) 0.00 - 0.03 K/mcL LAB HEMETOLOGY METHOD 12/01/2024 12:03 PM EDT [facility] Blood Venous blood specimen / Unknown Venipuncture / Unknown 12/01/2024 10:24 AM EDT 12/01/2024 10:24 AM EDT Garett GOINS LAB BLOOD ORDERABLES Final Re sult [facility] [address] [place] [address], * (ABNORMAL) Borrelia burgdorferi antibody (12/01/2024 10:24 AM EDT) Pathologist [facility] Lyme IgG Antibody Positive( A) Negative LAB CHEMISTRY METHOD 12/01/2024 1:38 PM EDT [facility] Lyme IgM Antibody Positive( A) Negative LAB CHEMISTRY METHOD 12/01/2024 1:38 PM EDT [facility] Lyme Ab Positive( A) Negative LAB CHEMISTRY METHOD 12/01/2024 1:38 PM EDT [facility] Comment: Results are consistent with B. burgdorferi (Lyme [...] testing in 7-14 days if clinically warranted Blood Venous blood specimen / Unknown Venipuncture / Unknown 12/01/2024 10:24 AM EDT 12/01/2024 10:24 AM EDT Garett GOINS LAB BLOOD ORDERABLES Final Re sult [facility] [address] [place] [address], [place] [phone] * Sedimentation rate (12/01/2024 10:24 AM EDT) [facility] Sed Rate 12 0 - 15 mm/hr LAB HEMETOLOGY METHOD 12/01/2024 12:17 PM EDT [facility] Blood Venous blood specimen / Unknown Venipuncture / Unknown 12/01/2024 10:24 AM EDT 12/01/2024 10:24 AM EDT Garett GOINS LAB BLOOD ORDERABLES Final Re sult Performing Organization Address City/[facility]/ZIP Co de Phone Number [facility] [address] [place] [address], [place] [phone] * Hepatitis C antibody (08/10/2024 9:24 AM EDT) [facility] Hepatitis C Antibody Negative Negative LAB CHEMISTRY METHOD 08/10/2024 1:52 PM EDT [facility] Blood Venous blood specimen / Unknown Venipuncture / Unknown 08/10/2024 9:24 AM EDT 08/10/2024 9:24 AM EDT Jamel GOINS LAB BLOOD ORDERABLES Final Res ult [facility] [address] [place] [address], [place] [phone] * (ABNORMAL) Lipid panel with reflex to direct LDL (08/10/2024 9:24 AM EDT) Cholesterol 240(H) 0 - 200 mg/dL LAB CHEMISTRY METHOD 08/10/2024 1:04 PM EDT [facility] Triglycerides 148 0 - 150 mg/dL LAB CHEMISTRY METHOD 08/10/2024 1:04 PM EDT [facility] HDL 59 >=40 mg/dL LAB CHEMISTRY METHOD 08/10/2024 1:04 PM EDT [facility] LDL Calculated 151(H) 0 - 100 mg/dL LAB CHEMISTRY METHOD 08/10/2024 1:04 PM EDT [facility] VLDL Cholesterol Gabo 29.6 mg/dL LAB CHEMISTRY METHOD 08/10/2024 1:04 PM EDT [facility] Non HDL Chol. (LDL+VLDL) 181(H) <145 mg/dL LAB CHEMISTRY METHOD 08/10/2024 1:04 PM EDT [facility] Chol/HDL Ratio 4.1 0.0 - 4.4 LAB CHEMISTRY METHOD 08/10/2024 1:04 PM EDT [facility] Blood Venous blood specimen / Unknown Venipuncture / Unknown 08/10/2024 9:24 AM EDT 08/10/2024 9:24 AM EDT Jamel GOINS LAB BLOOD ORDERABLES Final Res ult [facility] [address] [place] [address], [place] [phone] * (ABNORMAL) Comprehensive metabolic panel (05/10/2024 8:44 AM EST) Sodium 139 133 - 145 mmol/L LAB CHEMISTRY METHOD 05/10/2024 1:13 PM EST [facility] Potassium 4.4 3.5 - 5.5 mmol/L LAB CHEMISTRY METHOD 05/10/2024 1:13 PM [facility] Chloride 105 96 - 110 mmol/L LAB CHEMISTRY METHOD 05/10/2024 1:13 PM [facility] CO2 29 21 - 32 mmol/L LAB CHEMISTRY METHOD 05/10/2024 1:13 PM [facility] Anion Gap 5 3 - 11 LAB CHEMISTRY METHOD 05/10/2024 1:13 PM [facility] Glucose 108(H) 70 - 100 mg/dL LAB CHEMISTRY METHOD 05/10/2024 1:13 PM [facility] BUN 17 5 - 25 mg/dL LAB CHEMISTRY METHOD 05/10/2024 1:13 PM [facility] Creatinine 0.86 0.70 - 1.30 mg/dL LAB CHEMISTRY METHOD 05/10/2024 1:13 PM [facility] eGFR 112 >=60 mL/min/1. 73m2 LAB CHEMISTRY METHOD 05/10/2024 1:13 PM [facility] Comment:Calculation based on the Chronic Kidney Disease Epidemiology Collaboration (CKD-EPI) equation refit without adjustment for race. BUN/Creatinine Ratio 19.8 LAB CHEMISTRY METHOD 05/10/2024 1:13 PM [facility] Calcium 9.3 8.5 - 10.5 mg/dL LAB CHEMISTRY METHOD 05/10/2024 1:13 PM [facility] AST (SGOT) 19 10 - 42 unit/L LAB CHEMISTRY METHOD 05/10/2024 1:13 PM [facility] ALT (SGPT) 41 10 - 60 unit/L LAB CHEMISTRY METHOD 05/10/2024 1:13 PM [facility] Alkaline Phosphatase 43 42 - 121 unit/L LAB CHEMISTRY METHOD 05/10/2024 1:13 PM [facility] Total Protein 7.4 6.0 - 8.0 g/dL LAB CHEMISTRY METHOD 05/10/2024 1:13 PM EST [facility] Albumin 4.5 3.2 - 5.0 g/dL LAB CHEMISTRY METHOD 05/10/2024 1:13 PM EST [facility] Total Bilirubin 0.6 0.0 - 1.4 mg/dL LAB CHEMISTRY METHOD 05/10/2024 1:13 PM EST [facility] Blood Venous blood specimen / Unknown Venipuncture / Unknown 05/10/2024 8:44 AM EST 05/10/2024 8:44 AM EST us Alta GOINS LAB BLOOD ORDERABLES Final Result [facility] [address] [place] [address], [place] [phone] from Last 3 Months or Most Recently Relevant to Health Maintenance Insurance [facility] [employer] Care Teams Director Independent Relationship Specialty Start Date End Date Marj Akhtar MD [address] [place] [id number] PCP - General Internal Medicine 07/19/20
== END 2025-02-14 07:39 | disposition home or self-care (01) ==
LOC: HO.HOSX 07:38
PROVIDERS: Visit Provider Orthopaedic Surgery
DX: M25.312 Other instability, left shoulder (principal)
CPT/HCPCS: 73030

== ENCOUNTER 2025-02-14 13:27 | Outpatient (AMB) | payer OTHER, SELFPAY ==
--- OUTSIDE RECORDS SUMMARY | 2025-02-12 09:30 | XMS_ITS | Encounter Summary ---
Author Organization [facility] Address [address] [place] [address] Care Team Providers Care Business Advisor Name Role Phone Marj Akhtar MD Primary Care Prov ider Reason for Referral * Consultation (Routine) - Pending Review Specialty Diagnoses / Procedures Referred By Beto tyler Referred To Contact Neurology Diagnoses Dizziness, nonspecific Other fatigue Brain fog Jamel Whitfield PA [address], [place] Phone: tel: fax: Referral ID Status Reason Start Date Expiration Date Visits Requested Visits Authorized [id number] Pending Review Specialty Services Required 02/12/2025 02/12/2026 1 1 Reason for Visit * Reason Comments med review Encounter Details Date Type Department Care Team ([facility] Contact Info) Description 02/12/2025 9:30 AM EDT Office Visit Adult Medicine - [place] [address] [place] [address] Jamel Whitfield PA [address], [place] Dizziness, nonspecific (Primary Dx); Brain fog; [...] care for your loved ones. For example, children's choir director or elderly care for an older adult? 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
--- NOTE | 2025-02-14 13:49 | MHC.OFFVIS ---
Vital Signs 02/14/25 13:54 Height 5 ft 7 in Weight 177 lb BMI 27.7 Intake Visit Reasons: Left shoulder pain and weakness Intake Note: Kee is a 39 year old male left hand dominant who presents with complaints of progressively worsening left shoulder pain and weakness. The patient did undergo right shoulder surgery in [address] Dominguez. He reports minimal discomfort in his right shoulder. He describes his left shoulder pain as sharp and severe in nature. Most of the pain is along the superior and lateral aspects of his shoulder. His symptoms have gotten worse over the last year in spite of continued non operative treatments. He has had injections in the past which gave him minimal relief. He has failed the last 6 weeks of conservative treatment which has included Tylenol, anti-inflammatory medicines, physical therapy exercises and a home exercise program. He reports weakness when lifting his left hand above shoulder height. Allergies tree nut Adverse Reaction (Intermediate, Verified 02/14/25 13:56) Swelling Medication List - Last Reviewed 02/14/25 by Adelaida Chaidez azelastine 2 sprays intranasal BID losartan 50 mg PO DAILY tadalafil 5 mg PO [facility] Social History Alcohol intake: current Alcohol intake frequency: holidays/special occasions only Patient Tobacco Use Status: Never used Tobacco Use of substances other than those prescribed or required for medical reasons: No Current occupational status: employed Current occupation: maritime engineer - [employer] Physical Exam Vital Signs: BMI result Body Mass Index 27.7 Const Other: Well-nourished well-developed very friendly male awake alert and oriented x3 in no acute distress Extrem Other: Bilateral upper extremity examination shows good capillary refill, no skin lesions noted, normal sensation light touch Left shoulder examination shows almost full range of motion when compared to his right shoulder, 4+ out of 5 strength with supraspinatus testing, positive impingement signs, tenderness over his acromioclavicular joint, no instability Results Reviewed Results Reviewed: X-rays of the patient's left shoulder show severe acromioclavicular joint narrowing, a type 3 acromion, no acute bony abnormalities Assessment & Plan Assessment & Plan (1) Rotator cuff insufficiency of left shoulder: Code(s): M25.312 - Other instability, left shoulder Category: Surgical Plan Mr. Hutchinson presents with progressively worsening left shoulder pain and weakness due to impingement syndrome, acromioclavicular joint arthritis and possible rotator cuff tearing. Thus, I will send the patient for an MRI of his left shoulder for further evaluation. I will contact him by phone once the MRI results are available. He will continue with his activity modifications in the meantime. Feel free to call me at any time should questions regarding his orthopedic management arise. Thank you very much for asking me to see this very friendly gentleman. I spent 22 minutes in reviewing the patient's records and imaging studies, seeing the patient and documenting in the medical record. Orders: Orders XR shoulder LT min 2V Today M25.512 - Pain in left shoulder MR shoulder LT wo con 02/15/25 M25.312 - Other instability, left shoulder Coding Level of Care Code New Pt Level 3 (46623) Complex EM visit Add On G2211 Diagnoses Rotator cuff insufficiency of left shoulder M25.312
[2025-02-14 13:54] VITALS: BMI 27.7
--- OUTSIDE RECORDS SUMMARY | 2025-02-14 15:53 | XMS_ITS | Clinical Summary ---
Author Organization [facility] [address] [facility] Address [address] [place] [address] Phone Care Team Providers Care Concrete Craftsman Name Role Phone Marj Akhtar MD Primary Care Prov ider Allergies Active Allergy Reactions Criticality Noted Date Comments Nut - Unspecified 07/23/2023 Tree nuts Peanut 09/18/2022 Medications azelastine (ASTELIN) 137 mcg (0.1 %) nasal spray USE 2 SPRAYS NASALLY TWICE A DAY DIRECTED 01/20/20 23 Active loratadine (CLARITIN) 10 mg tablet Take 1 tablet (10 mg total) by mouth 1 (one) time each day. Active tadalafiL (CIALIS) 5 mg tablet Take 1 Tablet by mouth. 05/04/20 22 Active omeprazole (PriLOSEC) [address] capsule Take 1 capsule (40 mg total) by mouth 2 (two) times a day. 05/04/20 22 Active EPINEPHrine (EpiPen 2-Ranjith) 0.3 mg/0.3 mL injection INJECT 1 PEN INJECTOR SINGLE DOSE NEEDED 11/05/19 22 Active albuterol HFA (PROAIR HFA ; PROVENTIL HFA ; VENTOLIN HFA) 90 mcg/actuation inhaler Inhale 2 Puffs into the lungs every 4 hours as needed for Cough, Wheezing or Shortness of Breath. 07/25/19 22 Active losartan (COZAAR) 50 mg tablet TAKE 1 TABLET BY MOUTH EVERY DAY 90 tablet 1 02/15/20 25 Active losartan (COZAAR) 50 mg tablet TAKE 1 TABLET BY MOUTH EVERY DAY 90 tablet 1 08/19/19 25 025 Discontinued Active Problems Problem Noted Date Diagnosed Date [...] He actually went to the ER at [facility] in early May 2021 where thankfully [...] is never covered and quite an expensive [id number] cost-overall, I do not feel his risk is particularly high and therefore we will just continue forward with standard risk reduction interventions including healthy diet, regular aerobic exercise, and monitoring of symptoms Erectile dysfunction 12/02/2020 Elevated LDL cholesterol level 07/19/2020 Chronic bilateral low back pain with right-sided sciatica 02/20/2020 Myositis 03/05/2009 Overview (04/12/2024): 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; Dyslipidemia; History of Lyme disease; Erectile dysfunction, unspecified erectile dysfunction type; Primary hypertension 12/25/2024 Telephone Infectious Disease - [place] [address] [place] [address] Jorden Little LPN 12/15/2024 Telephone Adult [address] [address] Marj Akhtar MD 12/04/2024 Telephone [facility] [address] [place] [address] Marj Akhtar MD 11/30/2024 7:30 AM EDT Office Visit [address] [address] Garett Judd PA Other fatigue (Primary Dx); Arthralgia, unspecified joint; Myalgia 11/27/2024 Telephone Adult [facility] [address] [place] [address] Marj Akhtar MD from Last 3 Months Immunizations Name Administration Dates Next Due Human Rabies, Human Diploid Cell Culture, (Imovax) 01/05/2017,12/28/2016,12/25/2016,2016 Rabies, Unspecified 01/05/2017, 7,12/25/2016,2016 Surgical History Surgery Date Site/Laterality Comments SHOULDER SURGERY 2017 Right PROCEDURE: HISTORICAL SHOULDER SURGERY; COMMENT: Rotator Cuff: [facility] APPENDECTOMY PROCEDURE: HISTORICAL APPENDECTOMY HERNIA REPAIR 05/14/2020 [...] for your loved ones. For example, child welfare consultant or elderly care for an older adult? 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 Not on file Not on file Not [...] 8:30 AM EDT Office Visit Adult Medicine - [place] [address] [place] [id number] Jamel Whitfield PA [address] [place] [address] Health Maintenance Due Date Last Done Comments [...] LAB HEMETOLOGY METHOD 12/01/2024 12:03 PM EDT [facility] RBC 5.10 4.50 - 5.50 M/mcL LAB HEMETOLOGY METHOD 12/01/2024 12:03 PM EDT [facility] Hemoglobin 14.2 13.5 - 17.5 g/dL LAB HEMETOLOGY METHOD 12/01/2024 12:03 PM EDT [facility] Hematocrit 42.4 42.0 - 54.0 % LAB HEMETOLOGY METHOD 12/01/2024 12:03 PM EDT [facility] MCV 82.8 79.0 - 98.0 FL LAB HEMETOLOGY METHOD [facility] MCH 27.7 27.0 - 32.0 pcg LAB HEMETOLOGY METHOD 12/01/2024 12:[address] [facility] MCHC 33.5 32.0 - 37.0 g/dL LAB HEMETOLOGY METHOD 12/01/2024 12:[address] [facility] RDW 11.8 11.0 - 15.0 % LAB HEMETOLOGY METHOD 12/01/2024 12:[address] [facility] Platelets 300 130 - 400 K/mcL LAB HEMETOLOGY METHOD 12/01/2024 12:[address] [facility] MPV 9.2 7.0 - 11.0 FL LAB HEMETOLOGY METHOD 12/01/2024 12:[address] [facility] NRBC 0.0 <1.0 % LAB HEMETOLOGY METHOD 12/01/2024 12:[address] [facility] NRBC Absolute 0.00 <0.10 K/mcL LAB HEMETOLOGY METHOD 12/01/2024 12:[address] [facility] Neutrophils Relative 54.6 % LAB HEMETOLOGY METHOD 12/01/2024 12:[address] [facility] Lymphocytes Relative 34.5 % LAB HEMETOLOGY METHOD 12/01/2024 12:[address] [facility] Monocytes Relative 7.0 % LAB HEMETOLOGY METHOD 12/01/2024 12:[address] [facility] Eosinophils Relative 2.6 % LAB HEMETOLOGY METHOD 12/01/2024 12:[address] [facility] Basophils Relative 0.5 % LAB HEMETOLOGY METHOD 12/01/2024 12:[address] [facility] Immature Granulocytes Relative 0.8 % LAB HEMETOLOGY METHOD 12/01/2024 12:[address] [facility] Neutrophils Absolute 3.38 1.50 - 7.00 K/mcL LAB HEMETOLOGY METHOD 12/01/2024 12:03 PM EDT [facility] Lymphocytes Absolute 2.13 1.00 - 5.00 K/mcL LAB HEMETOLOGY METHOD 12/01/2024 12:03 PM EDT [facility] Monocytes Absolute 0.43 0.20 - 1.00 K/mcL LAB HEMETOLOGY METHOD 12/01/2024 12:03 PM EDT [facility] Eosinophils Absolute 0.16 0.00 - 0.50 K/mcL LAB HEMETOLOGY METHOD 12/01/2024 12:03 PM EDT [facility] Basophils Absolute 0.03 0.00 - 0.20 K/[facility] LAB HEMETOLOGY METHOD 12/01/2024 12:03 PM EDT [facility] Immature Granulocytes Absolute 0.05(H) 0.00 - 0.03 K/[facility] LAB HEMETOLOGY METHOD 12/01/2024 12:03 PM EDT [facility] Blood Venous blood specimen / Unknown Venipuncture / Unknown 12/01/2024 10:24 AM EDT 12/01/2024 10:24 AM EDT Garett GOINS LAB BLOOD ORDERABLES Final Re sult [facility] [address] [place] [address], * (ABNORMAL) Borrelia burgdorferi antibody (12/01/2024 10:24 AM EDT) Lyme IgG Antibody Positive( A) Negative LAB CHEMISTRY METHOD 12/01/2024 1:38 PM EDT [facility] Lyme IgM Antibody Positive( A) Negative LAB CHEMISTRY METHOD 12/01/2024 1:38 PM EDT [facility] Lyme Ab Positive( A) Negative LAB CHEMISTRY METHOD 12/01/2024 1:38 PM EDT [facility] Comment: Results are consistent with [...] ORDERABLES Final Re sult Performing Organization Address City/[facility]/ZIP Co de Phone Number [facility] [address] [place] [address], * Sedimentation rate (12/01/2024 10:24 AM EDT) Sed Rate 12 0 - 15 mm/hr LAB HEMETOLOGY METHOD 12/01/2024 12:17 PM EDT [facility] Blood Venous blood specimen / Unknown Venipuncture / Unknown 12/01/2024 10:24 AM EDT 12/01/2024 10:24 AM EDT Garett GOINS LAB BLOOD ORDERABLES Final Re sult Performing Organization Address [facility]/ZIP Co de Phone Number [facility] [address] [place] [address], [place] [phone] * Hepatitis C antibody (08/10/2024 9:24 AM EDT) Hepatitis C Antibody Negative Negative LAB CHEMISTRY METHOD 08/10/2024 1:52 PM EDT [facility] Blood Venous blood specimen / Unknown Venipuncture / Unknown 08/10/2024 9:24 AM EDT 08/10/2024 9:24 AM EDT Jamel GOINS LAB BLOOD ORDERABLES Final Res ult Performing Organization Address [facility]/ZIP Co de Phone Number [facility] [address] [place] [address], [place] [phone] * (ABNORMAL) Lipid panel with reflex to direct LDL (08/10/2024 9:24 AM EDT) Cholesterol 240(H) 0 - 200 mg/dL LAB CHEMISTRY METHOD 08/10/2024 1:04 PM EDT [facility] Triglycerides 148 0 - 150 mg/dL LAB CHEMISTRY METHOD 08/10/2024 1:04 PM EDT [facility] HDL 59 >=40 mg/dL LAB CHEMISTRY METHOD 08/10/2024 1:04 PM EDT [facility] LDL Calculated 151(H) 0 - 100 mg/dL LAB CHEMISTRY METHOD 08/10/2024 1:04 PM EDT [facility] VLDL Cholesterol Gabo 29.6 mg/dL LAB CHEMISTRY METHOD 08/10/2024 1:04 PM EDT [facility] Non HDL Chol. (LDL+VLDL) 181(H) <145 mg/dL LAB CHEMISTRY METHOD 08/10/2024 1:04 PM EDT [facility] Chol/HDL Ratio 4.1 0.0 - 4.4 LAB CHEMISTRY METHOD 08/10/2024 1:04 PM EDT [facility] Blood Venous blood specimen / Unknown Venipuncture / Unknown 08/10/2024 9:24 AM EDT 08/10/2024 9:24 AM EDT Jamel GOINS LAB BLOOD ORDERABLES Final Res ult [facility] [address] [place] [address], [place] [phone] * (ABNORMAL) Comprehensive metabolic panel (05/10/2024 8:44 AM EST) Sodium 139 133 - 145 mmol/L LAB CHEMISTRY METHOD 05/10/2024 1:13 PM [facility] Potassium 4.4 3.5 - 5.5 mmol/L LAB CHEMISTRY METHOD 05/10/2024 1:13 PM [facility] Chloride 105 96 - 110 mmol/L LAB CHEMISTRY METHOD 05/10/2024 1:13 PM [facility] CO2 29 21 - 32 mmol/L LAB CHEMISTRY METHOD 05/10/2024 1:13 PM [facility] Anion Gap 5 3 - 11 LAB CHEMISTRY METHOD 05/10/2024 1:13 PM [facility] Glucose 108(H) 70 - 100 mg/dL LAB CHEMISTRY METHOD 05/10/2024 1:13 PM [facility] BUN 17 5 - 25 mg/dL LAB CHEMISTRY METHOD 05/10/2024 1:13 PM [facility] Creatinine 0.86 0.70 - 1.30 mg/dL LAB CHEMISTRY METHOD 05/10/2024 1:13 PM [facility] eGFR 112 >=60 mL/min/1. 73m2 LAB CHEMISTRY METHOD 05/10/2024 1:13 PM [facility] Comment:Calculation based on the Chronic Kidney Disease Epidemiology Collaboration (CKD-EPI) equation refit without adjustment for race. BUN/Creatinine Ratio 19.8 LAB CHEMISTRY METHOD 05/10/2024 1:13 PM [facility] Calcium 9.3 8.5 - 10.5 mg/dL LAB CHEMISTRY METHOD 05/10/2024 1:13 PM [facility] AST (SGOT) 19 10 - 42 unit/L LAB CHEMISTRY METHOD 05/10/2024 1:13 PM [facility] ALT (SGPT) 41 10 - 60 unit/L LAB CHEMISTRY METHOD 05/10/2024 1:13 PM [facility] Alkaline Phosphatase 43 42 - 121 unit/L LAB CHEMISTRY METHOD 05/10/2024 1:13 PM EST [facility] Total Protein 7.4 6.0 - 8.0 g/dL LAB CHEMISTRY METHOD 05/10/2024 1:13 PM EST [facility] Albumin 4.5 3.2 - 5.0 g/dL LAB CHEMISTRY METHOD 05/10/2024 1:13 PM EST [facility] Total Bilirubin 0.6 0.0 - 1.4 mg/dL LAB CHEMISTRY METHOD 05/10/2024 1:13 PM EST [facility] Blood Venous blood specimen / Unknown Venipuncture / Unknown 05/10/2024 8:44 AM EST 05/10/2024 8:44 AM EST us Alta GOINS LAB BLOOD ORDERABLES Final Result [facility] [address] [place] [address], from Last 3 Months or Most Recently Relevant to Health Maintenance Insurance [facility] [employer] [place] [id number] Care Teams Concrete Craftsman Relationship Specialty Start Date End Date Marj Akhtar MD [address] [place] [id number] PCP - General Internal Medicine 07/19/20
== END 2025-02-14 14:03 | disposition home or self-care (01) ==
LOC: HO.HOS 13:28
PROVIDERS: PCP Physician Assistant Medical; Visit Provider Orthopaedic Surgery
DX: M25.312 Other instability, left shoulder (principal)
CPT/HCPCS: 99203; G2211

== ENCOUNTER → 2025-02-14 13:38 | Outpatient (BNV) | payer OTHER, SELFPAY | PROVIDERS: Visit Provider Radiology Diagnostic Radiology | DX: M25.512 Pain in left shoulder (principal) | CPT/HCPCS: 73030 ==

== ENCOUNTER → 2025-03-12 18:38 | Outpatient (BNV) | payer OTHER, SELFPAY | PROVIDERS: PCP Physician Assistant Medical; Visit Provider Radiology Diagnostic Ultrasound | DX: M67.813 Other specified disorders of tendon, right shoulder (principal); M19.011 Primary osteoarthritis, right shoulder | CPT/HCPCS: 73221 ==

== ENCOUNTER 2025-03-12 18:40 | Outpatient (REF) | payer OTHER, SELFPAY ==
--- NOTE | ~2025-03-12 | MR_ITS ---
EXAMINATION: MR SHOULDER WITHOUT CONTRAST, LEFT CLINICAL INFORMATION: Shoulder instability COMPARISON: None available. TECHNIQUE: MRI of the shoulder without contrast was performed on a high-field scanner. FINDINGS: ROTATOR CUFF: Supraspinatus and infraspinatus: Mild tendinosis. Intrasubstance partial tear in the insertional posterior fibers supraspinatus/anterior fibers infraspinatus, overall measuring 1 cm AP, 0.6 cm medial-lateral. Teres minor: Intact. Subscapularis: Mild tendinosis No muscle atrophy or fatty infiltration. BICEPS: Intact CORACOACROMIAL ARCH: The undersurface of the acromion is curved with no subacromial spur. Mild acromioclavicular arthritis. Trace subacromial subdeltoid bursitis. LABRUM/CAPSULE: There is T2 signal superior labrum from degeneration and possible tear. Intact inferior capsule GLENOHUMERAL JOINT/MARROW: No fracture. No aggressive marrow replacing lesion. No significant effusion. MR/MR shoulder LT wo con IMPRESSION: 1. Mild supraspinatus and infraspinatus tendinosis. 1 x 0.6 cm intrasubstance partial tear in the insertional posterior fibers supraspinatus/anterior fibers infraspinatus. 2. Mild subscapularis tendinosis. 3. Superior labral findings from degeneration and possible tear. 4. Mild acromioclavicular arthritis. Trace subacromial subdeltoid bursitis. Electronically signed by: Andrew Esquivel MD 03/14/2025 08:19 AM EDT
== END 2025-03-12 18:41 | disposition home or self-care (01) ==
LOC: HO.MRI 18:40
PROVIDERS: PCP Physician Assistant Medical; Visit Provider Orthopaedic Surgery
DX: M25.312 Other instability, left shoulder (principal)
CPT/HCPCS: 73221

== ENCOUNTER 2025-04-04 09:43 | Outpatient (AMB) | payer OTHER, SELFPAY ==
--- NOTE | 2025-04-04 09:45 | A.OFFVIS_ITS ---
Vital Signs 04/04/25 09:49 Height 5 ft 7 in Weight 178 lb BMI 27.9 Handedness Left Intake Visit Reasons: Left shoulder pain and stiffness Intake Note: Kee is a 39 year old male left hand dominant who presents with complaints of progressively worsening left shoulder pain and stiffness. The patient did undergo right shoulder surgery in [address] Dominguez. He reports minimal discomfort in his right shoulder. He describes his left shoulder pain as sharp and severe in nature. Most of the pain is along the superior and lateral aspects of his shoulder. His symptoms have gotten worse over the last year in spite of continued non operative treatments. He has had injections in the past which gave him minimal relief. He has failed the last 6 weeks of conservative treatment which has included Tylenol, anti-inflammatory medicines, physical therapy exercises and a home exercise program. He reports difficulty lifting his left hand above shoulder height. Allergies peanut Allergy (Severe, Verified 04/04/25 09:49) Swelling tree nut Adverse Reaction (Intermediate, Verified 02/14/25 13:56) Swelling Medication List - Last Reconciled 04/04/25 by Dank Michaels MD azelastine 2 sprays intranasal BID losartan 50 mg PO DAILY tadalafil 5 mg PO [facility] Medical History Left shoulder pain Surgical History Rotator cuff insufficiency of left shoulder Social History Alcohol intake: current Alcohol intake frequency: holidays/special occasions only Patient Tobacco Use Status: Never used Tobacco Current occupational status: employed Current occupation: linux support engineer - [employer] Physical Exam Vital Signs: BMI result Body Mass Index 27.9 Const Other: Well-nourished well-developed very friendly male awake alert and oriented x3 in no acute distress Extrem Other: Left shoulder examination shows decreased active and passive range of motion when compared to his right shoulder, 4+ out of 5 strength with supraspinatus testing, positive impingement signs, tenderness over his acromioclavicular joint, no instability Results Reviewed Results Reviewed: MRI of the patient's left shoulder show severe acromioclavicular joint narrowing, a type 3 acromion, signal change within the supraspinatus tendon most likely due to adhesive capsulitis Assessment & Plan Assessment & Plan (1) Impingement syndrome of left shoulder: Code(s): M75.42 - Impingement syndrome of left shoulder Category: Medical Plan Mr. Cedillo presents with progressively worsening left shoulder pain and stiffness due to impingement syndrome, acromioclavicular joint arthritis and adhesive capsulitis. I had a lengthy discussion with the patient regarding the treatment options. At this point he has failed continued non operative treatments. The risks and benefits of left shoulder surgery were discussed at length with the patient. The patient wishes to proceed with surgery. Surgery will involve left shoulder arthroscopic distal clavicle excision, left shoulder arthroscopic acromioplasty, left shoulder arthroscopic capsular release and left shoulder manipulation under anesthesia. The patient will be scheduled for next available date. He will follow up as instructed. Feel free to call me at any time should questions regarding his orthopedic management arise. I spent 20 minutes in reviewing the patient's records and imaging studies, seeing the patient and documenting in the medical record. Coding Level of Care Code Est Pt Level 3 (31078) Complex EM visit Add On G2211 Diagnoses Impingement syndrome of left shoulder M75.42
[2025-04-04 09:49] VITALS: BMI 27.9
--- OUTSIDE RECORDS SUMMARY | 2025-04-04 11:02 | XMS_ITS | Clinical Summary ---
Author Organization [facility] [address] [facility] Address [address] [place] [address] Phone Care Team Providers Care Conveyor Belt Repairer Name Role Phone Marj Akhtar MD Primary [...] He actually went to the ER at [facility] in early May 2021 where thankfully [...] is never covered and quite an expensive [id number] cost-overall, I do not feel his risk is particularly high and therefore we will just continue forward with standard risk reduction interventions including healthy diet, regular aerobic exercise, and monitoring of symptoms Erectile dysfunction 12/02/2020 Elevated LDL cholesterol level 07/19/2020 Chronic bilateral low back pain with right-sided sciatica 02/20/2020 Myositis 03/05/2009 Overview (04/12/2024): [facility] Room Encounters Date Type Department Care Team Description 02/12/2025 9:30 AM EDT Office Visit Adult Medicine [address] [id number] Jamel Whitfield PA Dizziness, nonspecific (Primary Dx); Brain fog; Other fatigue; 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; Dyslipidemia; History of Lyme disease; Erectile dysfunction, unspecified erectile dysfunction type; Primary hypertension from Last 3 Months Immunizations Immunization Administration Dates Next Due Human Rabies, Human Diploid Cell Culture, (Imovax) 01/05/2017,12/28/2016,12/25/2016,2016 Rabies, Unspecified 01/05/2017, 7,12/25/2016,2016 Surgical History Surgery Date Site/Laterality Comments SHOULDER SURGERY 2016 Right PROCEDURE: HISTORICAL SHOULDER SURGERY; COMMENT: Rotator Cuff: [facility] APPENDECTOMY PROCEDURE: HISTORICAL APPENDECTOMY HERNIA REPAIR 05/14/2020 [...] care for your loved ones. For example, early childhood or elderly care for an older adult? [...] Date Recorded What is your living situation? 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 Not on file Not on file Not [...] 8:30 AM EDT Office Visit Adult Medicine [facility] [address] [place] [address] Jamel Whitfield PA [address] [place] [address] Health Maintenance Due Date Last Done Comments HPV Vaccines (1 - 3-dose SCDM series) 11/28/2010 Hypertension/CHF/CAD Annual BMP Blood Test 05/10/2025 05/10/2024, 07/26/2023 Social Influencers of Health Screening 08/10/2025 08/10/2024 Cholesterol Screening (Lipid Panel) 02/15/2030 02/15/2025, 08/10/2024, 05/10/2024, Additional history exists RSV Immunization Adult Patients (1 - 1-dose 75+ series) 11/28/2058 Depression Screening Completed 08/10/2024 Hepatitis C Screening Completed 08/10/2024 COVID-19 Vaccine Discontinued DTaP,Tdap,and Td Vaccines Discontinued HIB Vaccines Aged Out No longer eligi ble based on patient's age to complete this topic HIV Screening Discontinued Hepatitis A Vaccines Aged Out No long [...] Procedure Name Priority Date/Time Associated Diagnosis Comments LIPID PANEL WITH REFLEX TO DIRECT LDL Routine 02/15/2025 10:24 AM EDT Dyslipidemia VITAMIN B12 Routine 02/15/2025 10:24 AM EDT Other fatigue TESTOSTERONE FREE, BIOAVAILABLE AND TOTAL Routine 02/15/2025 10:24 AM EDT Other fatigue HEPATITIS C ANTIBODY Routine 08/10/2024 9:24 AM EDT Need for hepatitis C screening test COMPREHENSIVE METABOLIC PANEL Routine 05/10/2024 8:44 AM EST Other fatigue from Last 3 Months or Most Recently Relevant to Health Maintenance Results * (ABNORMAL) Lipid panel with reflex to direct LDL (02/15/2025 10:24 AM EDT) Cholesterol 227(H) 0 - 200 mg/dL LAB CHEMISTRY METHOD 02/15/2025 10:31 PM EDT [facility] Triglycerides 193(H) 0 - 150 mg/dL LAB CHEMISTRY METHOD 02/15/2025 10:31 PM EDT [facility] HDL 71 >=40 mg/dL LAB CHEMISTRY METHOD 02/15/2025 10:31 PM EDT [facility] LDL Calculated 117(H) 0 - 100 mg/dL LAB CHEMISTRY METHOD 02/15/2025 10:31 PM EDT [facility] Comment:Estimated LDL Calcul ated using equation: Total cholesterol - HDL cholesterol - (Triglycerides/5) VLDL Cholesterol Gabo 38.6 mg/dL LAB CHEMISTRY METHOD 02/15/2025 10:31 PM EDT [facility] Non HDL Chol. (LDL+VLDL) 156(H) <145 mg/dL LAB CHEMISTRY METHOD 02/15/2025 10:31 PM EDT [facility] Chol/HDL Ratio 3.2 0.0 - 4.4 LAB CHEMISTRY METHOD 02/15/2025 10:31 PM T [facility] Blood Venous blood specimen / Unknown Venipuncture / Unknown 02/15/2025 10:24 AM EDT 02/15/2025 10:24 AM EDT Jamel GOINS LAB BLOOD ORDERABLES Final Res ult [facility] [address] [place] [address], * Testosterone free, bioavailable and total (02/15/2025 10:24 AM EDT) Testosterone 458 229 - 902 ng/dL LAB CHEMISTRY METHOD 02/15/2025 10:08 PM [facility] Testosterone, Free 8.4 4.6 - 22.4 ng/dL LAB CHEMISTRY METHOD 02/15/2025 10:08 PM [facility] Testosterone, Bioavailable 210 110 - 575 ng/dL LAB CHEMISTRY METHOD 02/15/2025 10:08 PM [facility] Sex Hormone Binding 37.8 See Comment nmol/L LAB CHEMISTRY METHOD 02/15/2025 10:08 PM T [facility] Comment: FEMALES: pre-menopausal 10.8 - >180 post-menopausal 23.2 - 159.1 MALES: 21-49 years 14.6 - 94.6 50-89 years 21.6 - 113.1 CHILDREN: No established reference range Over the counter supplements containing high doses of biotin may interfere with this assay. If interference is suspected, patients should be retested after refraining from biotin supplements for 72 hours. Albumin 4.6 3.2 - 5.0 g/dL LAB CHEMISTRY METHOD 02/15/2025 10:08 PM EDT [facility] Blood Venous blood specimen / Unknown Venipuncture / Unknown 02/15/2025 10:24 AM EDT 02/15/2025 10:24 AM EDT Jamel GOINS LAB BLOOD ORDERABLES Final Res ult Performing Organization Address City/[facility]/ZIP Co de Phone Number [facility] [address] [place] [address], [place] [phone] * Vitamin B12 (02/15/2025 10:24 AM EDT) [facility] Vitamin B-12 474 250 - 900 pcg/mL LAB CHEMISTRY METHOD 02/15/2025 10:31 PM EDT [facility] Blood Venous blood specimen / Unknown Venipuncture / Unknown 02/15/2025 10:24 AM EDT 02/15/2025 10:24 AM EDT us Jamel GOINS LAB BLOOD ORDERABLES Final Res ult [facility] [address] [place] [address], [place] [phone] * Hepatitis C antibody (08/10/2024 9:24 AM EDT) [facility] Hepatitis C Antibody Negative Negative LAB CHEMISTRY METHOD 08/10/2024 1:52 PM EDT [facility] Blood Venous blood specimen / Unknown Venipuncture / Unknown 08/10/2024 9:24 AM EDT 08/10/2024 9:24 AM EDT us Jamel GOINS LAB BLOOD ORDERABLES Final Res ult [facility] [address] [place] [address], [place] [phone] * (ABNORMAL) Comprehensive metabolic panel (05/10/2024 8:44 AM EST) Sodium 139 133 - 145 mmol/L LAB CHEMISTRY METHOD 05/10/2024 1:13 PM [facility] Potassium 4.4 3.5 - 5.5 mmol/L LAB CHEMISTRY METHOD 05/10/2024 1:13 PM [facility] Chloride 105 96 - 110 mmol/L LAB CHEMISTRY METHOD 05/10/2024 1:13 PM [facility] CO2 29 21 - 32 mmol/L LAB CHEMISTRY METHOD 05/10/2024 1:13 PM [facility] Anion Gap 5 3 - 11 LAB CHEMISTRY METHOD 05/10/2024 1:13 PM [facility] Glucose 108(H) 70 - 100 mg/dL LAB CHEMISTRY METHOD 05/10/2024 1:13 PM [facility] BUN 17 5 - 25 mg/dL LAB CHEMISTRY METHOD 05/10/2024 1:13 PM [facility] Creatinine 0.86 0.70 - 1.30 mg/dL LAB CHEMISTRY METHOD 05/10/2024 1:13 PM [facility] eGFR 112 >=60 mL/min/1. 73m2 LAB CHEMISTRY METHOD 05/10/2024 1:13 PM [facility] Comment:Calculation based on the Chronic Kidney Disease Epidemiology Collaboration (CKD-EPI) equation refit without adjustment for race. BUN/Creatinine Ratio 19.8 LAB CHEMISTRY METHOD 05/10/2024 1:13 PM [facility] Calcium 9.3 8.5 - 10.5 mg/dL LAB CHEMISTRY METHOD 05/10/2024 1:13 PM EST [facility] AST (SGOT) 19 10 - 42 unit/L LAB CHEMISTRY METHOD 05/10/2024 1:13 PM [facility] ALT (SGPT) 41 10 - 60 unit/L LAB CHEMISTRY METHOD 05/10/2024 1:13 PM [facility] Alkaline Phosphatase 43 42 - 121 unit/L LAB CHEMISTRY METHOD 05/10/2024 1:13 PM [facility] Total Protein 7.4 6.0 - 8.0 g/dL LAB CHEMISTRY METHOD 05/10/2024 1:13 PM [facility] Albumin 4.5 3.2 - 5.0 g/dL LAB CHEMISTRY METHOD 05/10/2024 1:13 PM [facility] Total Bilirubin 0.6 0.0 - 1.4 mg/dL LAB CHEMISTRY METHOD 05/10/2024 1:13 PM [facility] Blood Venous blood specimen / Unknown Venipuncture / Unknown 05/10/2024 8:44 AM EST 05/10/2024 8:44 AM EST Alta GOINS LAB BLOOD ORDERABLES Final Result [facility] [address] [place] [address], from Last 3 Months or Most Recently Relevant to Health Maintenance Insurance [facility] [employer] Care Teams Conveyor Belt Repairer Relationship Specialty Start Date End Date Marj Akhtar MD [address] [place] [phone] PCP - General Internal Medicine 07/19/20
== END 2025-04-04 09:57 | disposition home or self-care (01) ==
LOC: HO.HOS 09:43
PROVIDERS: PCP Physician Assistant Medical; Visit Provider Orthopaedic Surgery
DX: M75.42 Impingement syndrome of left shoulder (principal)
CPT/HCPCS: 99214

== ENCOUNTER → 2025-04-04 09:43 | Outpatient (BNVA) | payer OTHER, SELFPAY | PROVIDERS: PCP Physician Assistant Medical; Visit Provider Orthopaedic Surgery | DX: M25.512 Pain in left shoulder (principal); M75.42 Impingement syndrome of left shoulder | CPT/HCPCS: 99212 ==